=== PATIENT | male | born 1945 | race Asian ===

== ENCOUNTER 2016-08-04 22:04 | Emergency (ER) | payer OTHER ==
[~2016-08-04] VITALS: Ht 165.1 cm; Wt 54.4 kg
[~2016-08-04 22:04] MED LIST: ETOMIDATE 2 MG/ML VIAL IV ONE; FEE EMEERGENCY 1 MIN EA MC ONE; ROCURONIUM BROMIDE 50 MG/5 ML IV ONE; SUCCINYLCHOLINE CHLORIDE 20 MG/ML VIAL IV ONE
--- NOTE | 2016-08-04 22:04 | NUR ---
BROUGHT IN BY KELLY. RICO STARTED ON RT AC 16G. SOB NOTED. PT AA&O X 2.
--- NOTE | 2016-08-04 22:04 | NUR ---
VERBAL ORDERS PER DR. GONGORA TO GIVE IV BOLUS 2L NS. PT MEDICATED.
--- NOTE | 2016-08-04 22:04 | NUR ---
CALLED [facility] RE: HIGHER LEVEL OF CARE TRANSFER. SPOKE TO NURSING BAR CAPTAIN. TO CALL BACK.
--- NOTE | 2016-08-04 22:06 | NUR ---
IV BOLUS 2L. ONE LITER STARTED STAT.
--- NOTE | 2016-08-04 22:08 | NUR ---
XRAY AT BEDSIDE
[2016-08-04] MEDS ORDERED: LIDOCAINE 1%-EPI 1:100,000 20 ML VIAL ONE (22:16)
--- NOTE | 2016-08-04 22:18 | NUR ---
DR BRAKSDALE ACCEPTING MD CAMILO AT [facility] ACCEPTING
--- NOTE | 2016-08-04 22:20 | NUR ---
PT GOING TO [facility] ACCEPTED [address] SPOKE WITH NURSING PLASTERER MAINTENANCE DR NAVA ACCEPTING
--- NOTE | 2016-08-04 22:20 | NUR ---
49/32 RESP 29, HR63, O2 SAT 100% ON NON REBREATHER.
[2016-08-04] MEDS ORDERED: BLOOD IV SET 1 EA INFUS.SET MC ONE (22:22)
[2016-08-04] MEDS ORDERED: IV NS 0.9% 500 ML IV ONE (22:22)
--- NOTE | 2016-08-04 22:26 | NUR ---
PT INTUBATED 22 AT THE LIP, ETT 7.5
--- NOTE | 2016-08-04 22:27 | NUR ---
1 UNIT PRBC GIVEN
--- NOTE | 2016-08-04 22:28 | NUR ---
succinylcholine accidently drawn up and not given. wasted succinylcholine with RN Dash. medicated pt as ordered for intubation
--- NOTE | 2016-08-04 22:28 | NUR ---
111 INCIDENT 1511 CALLED 911 FOR INTERFACILITY TRANSPORT TO [facility]
--- NOTE | 2016-08-04 22:28 | NUR ---
CHEST TUBE INSERTED BY DR. GONGORA UNDER STERILE PROCEDURES.
--- NOTE | 2016-08-04 22:29 | NUR ---
BP 60/33, HR 71, O2 SAT 100%- NRB MASK
--- NOTE | 2016-08-04 22:29 | NUR ---
WASTED SUCCINYLCHOLINE WITH FAMILIA PRITCHARD.
--- NOTE | 2016-08-04 22:29 | NUR ---
CHEST TUBE REMOVED BY DR. GONGORA DUE TO BLOOD COMING OUT OF THE CHEST TUBE AND SURROUNDING AREA. THORACOTOMY PERFORMED BY DR. GONGORA.
--- NOTE | 2016-08-04 22:30 | NUR ---
BP 39/22, HR 69, 02 SAT 100 % NRB MASK
--- NOTE | 2016-08-04 22:34 | NUR ---
2ND UNIT PRBC GIVEN
[2016-08-04] MEDS ORDERED: PROPOFOL 100 ML IV ONE (22:35)
[2016-08-04] MEDS ORDERED: IV SET PRIMARY PUMP SET 1 EA INFUS.SET MC ONE (22:35)
--- NOTE | 2016-08-04 22:40 | NUR ---
IVP PROP 4ML X [address] GONGORA
--- NOTE | 2016-08-04 22:41 | NUR ---
PROPOFOL DRIP STARTED PER PROTOCOL. Addendum: 08/05/16 at 0044 by [email or web address] DIPROVAN DRIP NOT STARTED, PER DR. GONGORA.
[2016-08-04] MEDS ORDERED: CELLULOSE,OXIDIZED 1 EACH EACH MC ONE (22:42)
--- NOTE | 2016-08-04 22:42 | NUR ---
3RD UNIT PRBC STARTED.
--- NOTE | 2016-08-04 22:42 | NUR ---
BP 96/60, HR 159, O2 SAT 100% NRB MASK
--- NOTE | 2016-08-04 22:43 | NUR ---
PRESSURE DRSG PLACED OVER OPEN CHEST.
--- NOTE | 2016-08-04 22:43 | NUR ---
RA 88 ASSUMED CARE.
--- NOTE | 2016-08-04 22:46 | NUR ---
CANCELLED [facility].
--- NOTE | 2016-08-04 22:48 | NUR ---
RESCUE LEFT WITH PT AND FAMILIA PRITCHARD AND SEMAJ RT. CALLED [facility] WITH UPDATE ON PT ARRIVAL.
--- NOTE | 2016-08-04 22:50 | NUR ---
transported pt with [facility] to [facility]
--- NOTE | 2016-08-04 22:51 | NUR ---
unable to start 4th unit of blood due to lack of blood tubing in [facility] rig. left unit of blood with PT at [facility]
--- NOTE | 2016-08-04 22:51 | NUR ---
CALLING DR. NAVA AT [facility].
--- NOTE | 2016-08-04 22:53 | NUR ---
DR. GONGORA IS SPEAKING TO DR. NAVA.
[2016-08-04 22:54] VITALS: BP 82/60
[2016-08-04] MEDS ORDERED: IV NS 0.9% 1,000 ML BAG IV ONE (23:00)
[2016-08-04] MEDS ORDERED: ETOMIDATE 2 MG/ML VIAL IV ONE (23:00)
[2016-08-04] MEDS ORDERED: ROCURONIUM BROMIDE 100 MG/10 ML VIAL IV ONE (23:00)
--- NOTE | 2016-08-04 23:26 | NUR ---
FOUND [place] OF PT'S; PLACED IN BELONGING BAG WITH PT LABEL. ALL OTHER BELONGINGS SENT WITH [employer] OFFICER TO [facility].
--- NOTE | 2016-08-04 23:32 | NUR ---
ARNOLDO MARINO [facility] [employer]RON OFFICER IS TAKING PT'S CRUCIFIX AND CHAIN AND PT'S BELONGINGS TO [employer]. ARNOLDO MATTHEWS LEAVING AT THIS TIME.
--- NOTE | 2016-08-04 23:45 | NUR ---
Karen kruse in EDM - 08/05/16 at 0053 by CHAVEZ unable to start 4th unit of blood due to lack of blood tubing in [facility] rig. left unit of blood with PT at [place] [facility]
[2016-08-05] MEDS ORDERED: PROPOFOL 200 MG/20 ML VIAL IV ONE
== END 2016-08-05 00:44 | disposition short-term general hospital (02) ==
LOC: ER 22:06
DX: S21.102A Unspecified open wound of left front wall of thorax without penetration into thoracic cavity, initial encounter (principal); J94.2 Hemothorax; I31.3 Pericardial effusion (noninflammatory); Z46.82 Encounter for fitting and adjustment of non-vascular catheter; W22.8XXA Striking against or struck by other objects, initial encounter; Y93.89 Activity, other specified; Y92.89 Other specified places as the place of occurrence of the external cause; Y99.8 Other external cause status
CPT/HCPCS: 32551; 71010-TC; A4606; A6403; J0330; J3490; J7050; Z7610